=== PATIENT | female | born 2000 | race Caucasian/White ===

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

== ENCOUNTER 2022-08-16 10:23 | Emergency (ER) | payer OTHER, SELFPAY ==
[2022-08-16 10:24] VITALS: BP 137/94; PULSE 76; RESP 18; TEMP 35.9; O2SAT 100; BMI 25.8
--- NOTE | 2022-08-16 11:01 | EKG12_ITS ---
Test Reason : CHEST TIGHTNESS Blood Pressure : / mmHG Vent. Rate : 056 BPM Atrial Rate : 056 BPM P-R Int : 186 ms QRS Dur : 088 ms QT Int : 410 ms P-R-T Axes : 018 027 002 degrees QTc Int : 395 ms Sinus bradycardia with sinus arrhythmia Otherwise normal ECG Confirmed by ROBETR LINCOLN, CATHY ([id number]), brands editor LUCILA WANG ([id number]) on 08/20/2022 9:41:35 AM Referred By: TATYANA Confirmed By:CATHY JONES MD
--- NOTE | 2022-08-16 11:01 | ED.VIS.DYS ---
HPI History of Present Illness Chief Complaint: Shortness of Breath Narrative Narrative: 22-year-old female presents with substernal chest tightness and shortness of breath that she is had since yesterday. She does not take control pills and has not taken them for at least a few months. She does vape and this morning she smoked a cigarette because she did not want to vape. She says that she has past medical history of anxiety and has not been taking her fluoxetine. She denies any exertional component to this. No nausea or vomiting. No fevers or chills. No cough. She also states that with her chest tightness and shortness of breath she feels that her heart may skip a beat or beat really fast. She denies any leg swelling. No DVT or PE risk factors. No sudden in the family. [facility] Medical History (Updated 08/16/22 @ 12:09 by Jhonny Ruano MD) Abnormal ultrasound of breast Anxiety Lump in central portion of left breast Lump of right breast Pharyngitis, acute Home Medications naproxen 500 mg tablet 500 mg PO BID #20 tabs 08/22/16 [Rx Last Taken Unknown] control PO 04/10/19 [History Last Taken Unknown] acyclovir 200 mg capsule 200 mg PO TID PRN 07/14/20 [History Last Taken Unknown] fluoxetine 40 mg capsule 40 mg PO DAILY 07/14/20 [History Last Taken Unknown] cephalexin 500 mg capsule 500 mg PO TID #21 caps 01/25/21 [Rx Last Taken Unknown] Allergy/AdvReac Type Severity Reaction Status Date / Time No Known Allergies Allergy Verified 08/16/22 10:24 Family History Mother Arthritis Precancerous lesion Breast Sister Seizures Grandmother Diabetes Other Cancer Heart disease Hypertension Surgical History History of right breast biopsy (~07/2020) No significant past surgical history Social History Smoking Status: Current every day smoker tobacco type: cigarettes alcohol intake: never substance use type: marijuana caffeine: Yes what type of physical activity do you participate in: none frequency: does not exercise ROS ROS ED ROS Narrative Constitutional: No fever, no chills. HEENT: No sore throat. No neck pain. No loss of vision. No rhinorrhea. Cardiovascular: No chest pain. No palpitations. No pedal edema. Respiratory: No cough, positive shortness of breath. Substernal chest tightness on occasion. Abdominal: No abdominal pain. No nausea. No vomiting. Genitourinary: No dysuria. No hematuria. Musculoskeletal: No myalgias. No arthralgias. Neurologic: No headaches. No dizziness. No lightheadedness. Skin: No rash. No change in color. Psychiatric: No depression. No anxiety. EXAM Physical Exam Narrative Exam Narrative: Afebrile. Vital signs noted. HEENT: Normocephalic. Atraumatic. PERRL, EOMI. Neck soft and supple. No point tenderness or step off. Cardiovascular: Regular rate and rhythm. No murmurs, rubs, or gallops appreciated. Respiratory: No tachypnea. Lungs clear to auscultation bilaterally. Gastrointestinal: Abdomen soft, nontender, with normoactive bowel sounds. No rebound or guarding. Neurological: Awake. Alert. Nonfocal, nonlateralizing. Skin: No rash. Normal color. No pallor. Musculoskeletal: No pedal edema. Full range of motion extremities. Const Vital Signs: 08/16/22 10:24 08/16/22 11:05 08/16/22 11:05 Temperature 96.7 F L Temperature Source Temporal Pulse Rate 76 70 Respiratory Rate 18 16 Respiratory Effort Normal Respiratory Pattern Normal Blood Pressure 137/94 H Blood Pressure Mean 108 Pulse Ox 100 96 Oxygen Delivery Method Room Air Room Air MDM [facility] MDM Narrative Medical decision making narrative: Patient is afebrile here. Pulse ox is 100% on room air without evidence of hypoxia. She is not tachycardic and is PERC negative. I do not feel D-dimer is indicated. Given her subjective shortness of breath and palpitations EKG and chest x-ray in 2 views were obtained. Smoking cessation was discussed. EKG was obtained and interpreted by myself which shows sinus bradycardia with a sinus arrhythmia at [address] changes. No STEMI. Chest x-ray in 2 views interpreted by myself shows no evidence of pneumothorax or infiltrate. No acute cardiopulmonary process. At this point in time, I feel she be discharged safely home with follow-up to her primary care physician. She will start her medications for anxiety again. Return instructions to the emergency department were reviewed. Disposition is discharged home in stable condition. Radiography Diagnostic Testing: Clinical Impression(s) from Imaging Studies Chest X-Ray 08/16/22 11:25 IMPRESSION: Normal x-ray examination of the chest. Electronically Signed: Annette Montiel MD at 11:39 EDT , Discharge Plan Triage Chief Complaint: Shortness of Breath Other Complaint: Chest Other ED Provider: Jhonny Ruano Dx/Rx/DC Orders Clinical Impression: Shortness of breath, Chest tightness Instructions: ED Dyspnea Prescriptions: No Action control PO fluoxetine 40 mg capsule 40 mg PO DAILY acyclovir 200 mg capsule 200 mg PO TID PRN cephalexin 500 mg capsule 500 mg PO TID Qty: 21 0RF naproxen 500 MG tablet 500 mg PO BID Qty: 20 0RF Primary Care Provider: Jak Miller Referrals: Jak Miller MD [Primary Care Provider] - 3-5 Days if not improving Disposition Disposition: Home, Self Care
[2022-08-16 11:05] VITALS: PULSE 70; RESP 16; O2SAT 96
--- NOTE | 2022-08-16 11:25 | RAD_ITS ---
STUDY: X-RAY CHEST REASON FOR EXAM: Female, 22 years old. Shortness of breath TECHNIQUE: Frontal and lateral views of the chest. COMPARISON: None. FINDINGS: The lungs are clear and expanded. There is no demonstrated pleural abnormality. Normal size heart. Normal mediastinum and darrius. Normal visualized pulmonary arteries. Normal visualized aortic arch and descending thoracic aorta. Normal visualized thoracic spine. Normal visualized ribs, clavicles, and shoulders. There is no demonstrated abnormality of the visualized soft tissue structures of the upper abdomen. RAD/Chest PA and Lateral IMPRESSION: Normal x-ray examination of the chest. Electronically Signed: Annette Montiel MD at 11:39 EDT ,
[2022-08-16 12:16] VITALS: RESP 14
== END 2022-08-16 12:17 | disposition home or self-care (01) ==
PROVIDERS: Emergency Provider Emergency Medicine; PCP Family Medicine; Visit Provider Emergency Medicine
DX: R06.02 Shortness of breath (principal); R07.89 Other chest pain; F12.90 Cannabis use, unspecified, uncomplicated; F17.210 Nicotine dependence, cigarettes, uncomplicated
CPT/HCPCS: 71046; 93005; 99282

== ENCOUNTER → 2024-12-01 | Outpatient (CLI) | payer OTHER, SELFPAY ==
--- NOTE | 2024-12-01 13:29 | US_ITS ---
STUDY: ULTRASOUND BREAST - RIGHT REASON FOR EXAM: Female, 24 years old. Right breast lump. TECHNIQUE: Axial and longitudinal images of the RIGHT breast were performed with a high resolution ultrasound transducer. # OF IMAGES: 32 COMPARISON: None. FINDINGS: RIGHT Breast: There is a 3.1 cm x 3.6 x 1.6 cm hypoechoic well-defined solid nodule at the 5:00 position of the breast at 4 cm from the nipple. A similar appearing hypoechoic solid nodule with well-defined borders also seen at the 8 to 9:00 position of the breast at 2 cm from the nipple. This measures 1.3 cm x 1.8 cm x 0.9 cm. These most likely represent fibroadenomas although tissue diagnosis is recommended. IMPRESSION: There are 2 well-defined hypoechoic well-defined nodules in the right breast as described. Tissue diagnosis is recommended. ASSESSMENT CATEGORY: BIRADS Category 4: Suspicious - Biopsy Should Be Considered. A letter regarding these results will be sent to the patient by the facility within 30 days. Electronically Signed: Connor Edouard MD at 10:01 [facility] , STUDY: ULTRASOUND BREAST - LEFT REASON FOR EXAM: Female, 24 years old. Palpable lumps in the left breast. TECHNIQUE: Axial and longitudinal images of the LEFT breast were performed with a high resolution ultrasound transducer. # OF IMAGES: 32 COMPARISON: None. FINDINGS: LEFT Breast: There is a 1.5 cm x 1.3 cm x 0.6 cm well-defined hypoechoic solid nodule at the 5:00 position of the breast at 5 cm from the nipple. A similar appearing hypoechoic solid nodule with a well-defined border measuring 1.2 cm x 0.7 cm x 0.5 cm is seen at the 1:00 position of the breast at 3 cm from the nipple. Tissue diagnosis is recommended. US/Breast Limited Unilateral IMPRESSION: There are 2 hypoechoic well-defined solid nodules in the breast as described. Biopsy recommended. ASSESSMENT CATEGORY: BIRADS Category 4: Suspicious - Biopsy Should Be Considered. A letter regarding these results will be sent to the patient by the facility within 30 days. Electronically Signed: Connor Edouard MD at 10:03 EST ,
== END | disposition home or self-care (01) ==
LOC: OPUS 13:27
PROVIDERS: PCP Family Medicine; Referring Provider Obstetrics & Gynecology; Visit Provider Obstetrics & Gynecology
DX: N63.10 Unspecified lump in the right breast, unspecified quadrant (principal); N63.20 Unspecified lump in the left breast, unspecified quadrant
CPT/HCPCS: 76642

== ENCOUNTER 2024-12-18 06:00 | Day surgery (SDC) | payer OTHER, SELFPAY ==
[2024-12-18] VITALS (9 sets, daily range): BP systolic 100–126; BP diastolic 66–93; PULSE 63–80; RESP 16; TEMP 36.4–36.8; O2SAT 100; BMI 25.2
[2024-12-18 06:21] LABS: Internal QC Validated? YES +Cl - CLEAR BKGD; Pregnancy, Urine Negative Negative
--- NOTE | 2024-12-18 07:12 | PCM.HP.BLA ---
History and Physical Date of Admission: 12/18/24 Date of Service: 12/07/24 MR#: [id number] Acct: [id number] Name: RICHARD DEWEY Rep #: [id number] : 2000 Provider: Dr. Luna Mann MD Age/Sex: 24/F Location: [facility] Status: Signed Intake Vital Signs 12/14/2409:58 12/07/2513:22 Height 5 ft 6 in 5 ft 6 in Weight: 160 lb BMI 25.8 BP 127/77 H Blood Pressure Location Rt brachial Position Sitting Respiration 18 Pulse 99 Pulse Source Monitor Temp 97.6 F L Temp Source Temporal Pulse Oximetry (%) 99 Oxygen Delivery Method room air Intake Visit Reasons: BIRADS 4 - EXCISIONAL BIOPSY Chief Complaint: BIRADS 4- excisional biopsy Accompanied by: Mother Is patient in pain?: No Allergies No Known Allergies Allergy (Verified 12/07/24 14:20) Medications ?Medication ?Instructions ?Recorded ?Confirmed ?Type control PO 04/10/19 01/25/21 History acyclovir 200 mg capsule 200 mg PO TID PRN 07/14/20 01/25/21 History fluoxetine 40 mg capsule 40 mg PO DAILY 07/14/20 01/25/21 History azithromycin 250 mg tablet See Rx Instructions PO .COMPLEX #6 10/02/24 10/02/24 Rx tabs pseudoephedrine 60 mg-DM 15 1 tab PO Q4-6H PRN cold symptoms 10/02/24 10/02/24 Rx mg-guaifenesin 400 mg tablet #20 tabs (Capmist DM) PFSH Medical History Abnormal ultrasound of breast Anxiety Lump in central portion of left breast Lump of right breast Pharyngitis, acute Surgical History History of right breast biopsy (~07/2020) No significant past surgical history Family History Mother Arthritis Precancerous lesion BreastSister SeizuresGrandmother DiabetesOther Cancer Heart disease Hypertension Social History Smoking Status: Current every day smoker tobacco type: cigarettes alcohol intake: never substance use type: marijuana caffeine: Yes what type of physical activity do you participate in: none frequency: does not exercise HPI HPI HPI: 24-year-old female presents due to right breast enlarging mass. Patient previously had breast biopsy done by Dr. Calix 2021 the right breast at 9:00 path was consistent with a fibroadenoma. At that time the 5:00 area was smaller. Repeat ultrasound now currently shows there is about three 3.1 x 3.6 x 1.6 cm at 5:00 4 cm from the nipple given a BI-RADS 4. The area from 8-9 o'clock 2 cm from nipple is still about the same size at 1.3 x 0.9 and this 1 was previously biopsied. Patient denies pain but does state that it has gotten larger more recently. Patient's paternal great grandma in her early 50s as well as paternal great aunts again in her early 50s and maternal great grandma all diagnosed breast cancer, mom had precancerous cells removed in 2013. 1 previous breast biopsy on the right for the fibroadenoma. ROS General General: No weight change, appetite, fatigue, colon cancer, breast cancer or weakness HEENT HEENT: No difficulty swallowing, eye injury, eye surgery, swollen glands or hoarseness Endo Endocrine: No thyroid disease, diabetes mellitus, thyroid cancer, Hair loss, heat intolerance or cold intolerance Skin Skin: Yes rash; No changing moles Breast Breast: Yes right breast lump and abnormal US; No left breast lump, nipple discharge, breast pain, abnormal mammogram or breast enlargement Musc Musculoskeletal: No back problems, arthritis, rheumatoid arthritis, gout or joint pain Cardio Cardiovascular: No murmur, pacemaker, heart disease, atrial fibrillation, high blood pressure, heart attack, heart stent, palpitations, shortness of breat with exertion or chest pain Psych Psychiatric: Yes anxiety; No depression or hearing voices Resp Respiratory: No shortness of breath, No sleep apnea, No cough, No COPD, No asthma, No emphysema and No wheezing Gastro Gastrointestinal: No abdominal pain, No nausea or vomiting, No diarrhea, No constipation, No blood in stool, No acid reflux, No hemorrhoids, No ulcers, No gallbladder problem and No black,tarry stools Jeronimo Hematologic: No blood thinners, No blood disorders, No bleeding, No anemia and No blood clots Neuro Neurologic: No numbness, No tingling and No weakness Exam Const General: cooperative, healthy appearing and no acute distress [facility] Head: normal to inspection Chest Other: Breast inspection: Symmetric bilaterally?when laying down able to see the right breast mass at 5:00 4 cm from the nipple Right breast: Fibroglandular tissue, 3 x 4 cm mass at 5:00 4 cm from the nipple, nontender, smaller 1.5 cm appreciated at 9:00 2 cm from the nipple., no nipple discharge or pain, no change in overlying skin Left breast: Fibroglandular tissue, no masses on exam, no nipple discharge or pain, no change in overlying skin No axillary or supraclavicular adenopathy bilaterally Resp Effort & Inspection: normal respiratory effort Cardio Rate: regular rate GI Inspection: non-distended Palpation: soft Skin General: no rashes or lesions noted Neuro General: patient oriented x3 Extrem General: no clubbing, cyanosis or edema Psych Affect: normal affect Assessment and Plan Assessment and Plan (1) Lump of right breast: Status: Acute Plan Plan for an excisional biopsy of the 5:00 4 cm from nipple breast mass. The other breast mass at 9:00 has already been biopsy-proven to be a fibroadenoma has not increased in size. Discussed procedure including risk not limited to bleeding, infection, need for further surgery. Patient no further questions time. Luna Mann M.D. Pager: [phone] [facility] [address] [place] [address], [facility], [address] [place] [address] Office: [phone] Coding Level of Care Code Off vis,new,level 3 Diagnoses Lump of right breast N63.10 12/09/24 1125 <Electronically signed by Luna Mann MD> Date Luna Mann MD
--- NOTE | 2024-12-18 07:20 | PCM.PRE.AN2 ---
ASA Classification* ASA Classification ASA Classification: 2 Assessment & Plan Anesthesia* Anesthesia Assessment Anesthesia Assessment: Discussed sedation and/or anesthesia options, risks, benefits, and alternatives with patient/parents/legal guardian/POA. Questions invited. The patient/parents/legal guardian/POA seems to understand and agrees to proceed with anesthesia plan. Reviewed the physical assessment, medical history, allergy history and patient home medications list prior to surgery/procedure/anesthetic and documented any changes. Performed airway and anesthesia risk assessments. Anesthesia Type Anesthesia Type: General History Source History Obtained from:: Patient and Chart Anesthesia Focused Assessment* Temperature: 98.3 F Pulse Rate: 80 Blood Pressure: 126/93 Respiratory Rate: 16 Pulse Ox: 100 Oxygen Delivery Method: Room Air Airway Assessment Mouth opens: >3 cm Mallampati Score: I Teeth Condition: Intact Neck Range of motion (ROM): Full ROM Focused Labs Anesthesia Preop lab: CBC WBC 9.7 K/mm3 (4.4-11.0) 07/21/15 16:40 RBC 4.57 M/mm3 (4.0-5.1) 07/21/15 16:40 Hgb 13.9 g/dl (12.0-15.0) 07/21/15 16:40 Hct 40.9 % (37-47) 07/21/15 16:40 Plt Count 267 K/mm3 (200-450) 07/21/15 16:40 CHEMISTRY Potassium 4.1 mmol/L (3.5-5.1) 07/21/15 16:40 Sodium 140 mmol/L (136-145) 07/21/15 16:40 BUN 12 mg/dL (7-18) 07/21/15 16:40 Creatinine 0.77 mg/dL (0.40-0.70) H 07/21/15 16:40 Glucose 92 mg/dL (70-110) 07/21/15 16:40 TSH 1.38 uIU/mL (0.358-3.74) 12/11/19 15:47 COAG Urine Test Negative Negative 12/18/24 06:07 Pre-Assessment Diagnosis/Proposed Procedure Planned Operative Procedure(s): U/S GUIDED RIGHT EXCISIONAL BREAST BIOPSY Anesthesia History 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 When Was Last Pacemaker Check QUESTION #4 FULL TEXT: You/Your Family Experience fever (hyperthermia) with Anesthesia Last Oral Intake Last Oral intake: Last Oral Intake NPO since 00:00 12/18/24 06:35 Meds taken in AM with sips of Yes 12/18/24 06:35 water? Meds patient instructed to buspirone 12/18/24 06:35 take am of surgery fluoxitine PONV PONV - life insurance sales agent: PONV - life insurance sales agent Female Yes 12/11/24 11:31 HX of Motion Sickness Yes 12/11/24 11:31 HX of N/V After Surgery No 12/11/24 11:31 Non-Smoker Yes 12/11/24 11:31 Duration of Surgery greater Yes 12/11/24 11:31 than 60 minutes Number of Risk Factors 4 12/11/24 11:31 PONV Score Severe Risk 12/11/24 11:31 Height & Weight Height & Weight: Anesthesia: Height & Weight Height 5 ft 6 in 12/18/24 06:35 Weight: 71 kg 12/18/24 06:35 Body Mass Index (BMI) 25.2 12/18/24 06:35 Respiratory Assessment Respiratory Assessment - life insurance sales agent: Respiratory Tract Infection Hx - life insurance sales agent Hx Respiratory Tract Infection No 12/11/24 11:31 STOP Sleep Apnea STOP Sleep Apnea - life insurance sales agent: STOP Sleep Apnea - life insurance sales agent Hx Hypertension No 12/11/24 11:31 Hx Sleep Apnea No 12/11/24 11:31 CPAP BIPAP Do you snore loudly (louder No 12/11/24 11:31 than talking or can be heard Do you often feel tired/ Yes 12/11/24 11:31 fatigued/ sleepy during daytime? Has anyone observed you stop No 12/11/24 11:31 breathing during sleep? STOP Results Negative 12/11/24 11:31 QUESTION #5 FULL TEXT : Do you snore loudly (louder than talking or can be heard through closed doors)? Tobacco Use History Tobacco Use History - life insurance sales agent: Tobacco Use History - life insurance sales agent Tobacco Use Smoking Status Current every day smoker 12/11/24 11:31 Hx Tobacco Use Yes 12/11/24 11:31 Years Smoking Packs Smoked per Day Smoking Cessation Date was within the last 15 years Hx Smoking Cessation Date Hx Smoking Cessation Counseling Any additional information?: Yes Smoking Status: Current every day smoker (Patient did smoke today.) Hematologic Medial History Hematologic Hx - life insurance sales agent: Hematologic Medical Hx - earth mover Hx of Blood Transfusion No 12/11/24 11:31 Hx of Transfusion in last 3 No 12/11/24 11:31 Months Date of Last Transfusion (if within last 3 months) Ever experience any problems No 12/11/24 11:31 with transfusion(s)? Specify any problems Hx of Preganancy in last 3 No 12/11/24 11:31 Months Nurse Filling Out Transfusion DSCHRIBER 12/11/24 11:31 & Questions: Date: 12/11/24 12/11/24 11:31 Time: 11:33 12/11/24 11:31 Patient unable to answer at this time (ie. confused, unrespo /Reproduction History /Reproductive History - life insurance sales agent: /Reproductive Hx- life insurance sales agent Hx Now No 12/11/24 11:31 Gestational Age (in weeks): EDC: Hx Hx Para Hx Section SAB No 12/11/24 11:31 PFSH Medical History Wears contact lenses Wears glasses ADD (attention deficit disorder) Depression Marijuana use Alcohol use History of steroid therapy Easy bruising Heartburn Shortness of breath on exertion Smoker Abnormal ultrasound of breast Anxiety Lump in central portion of left breast Lump of right breast Pharyngitis, acute Home Medications ?Medication ?Instructions ?Recorded ?Last Taken ?Type acyclovir 200 mg capsule 200 mg PO TID PRN cold sores 07/14/20 Unknown History fluoxetine 40 mg capsule 40 mg PO DAILY 07/14/20 12/18/24 History atomoxetine 40 mg capsule 40 mg PO DAILY 12/11/24 12/17/24 History buspirone 15 mg tablet 15 mg PO BID 12/11/24 12/18/24 History loratadine 10 mg tablet (Claritin) 10 mg PO DAILY 12/11/24 12/17/24 History Allergy/AdvReac Type Severity Reaction Status Date / Time No Known Allergies Allergy Verified 12/11/24 11:27 Family History Mother Arthritis Precancerous lesion Breast Sister Seizures Grandmother Diabetes Other Cancer Heart disease Hypertension Surgical History History of right breast biopsy (~07/2020) No significant past surgical history Social History Smoking Status: Current every day smoker tobacco type: cigarettes alcohol intake: never substance use type: marijuana caffeine: Yes what type of physical activity do you participate in: none frequency: does not exercise Review of Systems (Anesthesia) ROS Narrative System reviewed and no additional complaints, except as documented.
--- NOTE | 2024-12-18 07:30 | BRBX_PTH ---
PATIENT: RICHARD DEWEY LOC: [facility] U#:[id number] AGE/SX: 24/F ROOM: RE12/18/[address]: Dr. Luna Mann MD : 2000 BED: DIS: 12/18/2024 SPEC #: [id number] RECD: 12/18/24 08:36 STATUS: TERRY ASH #: [id number] JIN: 12/18/24 07:[address]: Luna Mann DEPT: SURGICAL PATHOLOGY RECD BY: Gaby Hidalgo ENTERED: 12/18/24 09:44 SP TYPE: BREAST BX OTHR DR: Dr. 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 Negative for atypia or malignancy. See comment. SADIEJuaquin 12/22/2024 COMMENT The lesion appears to be completely excised. MICROSCOPIC DESCRIPTION Slides are reviewed. GROSS DESCRIPTION Received in fixative is one container labeled with the patient's name and designated Right breast mass. The specimen consists of a piece of fibroadipose tissue with needle localization measuring 5 x 4 x 2.5cm. The specimen is oriented as follows: short stitch- anterior, long stitch- lateral. The specimen is inked as follows: anterior - yellow, posterior - black, superior - blue, inferior - green, medial - red and lateral - orange. The specimen is serially sectioned from anterior to posterior margins. Sections reveal a us solid nodule occupying 90% of the specimen measuring 3.5 x 3 x 1.5cm. The entire specimen is submitted in twelve cassettes. Cassette 1 contains the most anterior portion of the specimen and cassette 12 contains the posterior portion of the specimen. 12/21/2024 TC:1 CPT:10045
[2024-12-18] MEDS: Cefazolin 2 GM in Syringe IV (07:36)
[2024-12-18] MEDS: Bupiv/Epi 0.25% 30 ML Vial (07:48)
--- NOTE | 2024-12-18 08:04 | OP.PCM_ITS ---
Operative Report (Standard) Operative Information Date of Procedure: 12/18/24 Pre-Operative Diagnosis: Right breast fibroadenoma Post-Operative Diagnosis: Same Surgery/Procedure Performed: Ultrasound-guided localization right breast fibroadenoma excision annual giving officer: Yes Direct Support Professional: Ajay Ribera Tasks completed by therapeutic assistant: Opening & closing Type of Anesthesia: General/Supplemental RN Documented Start/Stop Times: Operation Date: 12/18/24 07:30 Case Time Into Pre-Op 12/18/24 06:03 Out of Pre-Op 12/18/24 07:24 Anesthesia Start 12/18/24 07:30 Into Room 12/18/24 07:30 Procedure Start 12/18/24 07:48 Procedure End 12/18/24 08:16 Anesthesia End 12/18/24 08:26 Out of Room 12/18/24 08:26 Into Recovery 12/18/24 08:29 Out of Recovery 12/18/24 09:18 Into Phase II Recovery 12/18/24 09:19 Procedure Start Time: 07:48 Procedure Stop Time: 08:16 Select all DRAINS/GRAFTS/IMPLANTS that apply: None Special Medications: Ancef 2 g IV x 1 Estimated Blood Loss: < 10 cc Specimen collected: Yes Description of specimen(s) removed: Right breast fibroadenoma Description of surgery: Patient was brought to operating placed spine operating table. Timeout was completed verifying correct patient, procedure, site, positioning, special, prior began procedure. General anesthesia was induced. Patient's right breast was prepped draped in a sterile fashion. Ultrasound guided needle localization with Kopan needle was completed with the wire just inferior to the fibroadenoma. A radial incision was planned in such a way as to minimize the amount of dissection to reach the mass. Flaps were raised in the location of the wire confirmed. The wire was delivered into the wound. 2 silk [id number] stay suture was placed around the wire and used for traction. Dissection was then taken down circumferentially with electrocautery, taking care to include the entire localization needle and wide margin of grossly normal tissue. The specimen and entire localizing wire were removed. The specimen was oriented and sent to radiology for confirmation. No clip was noted in the specimen may be in the surrounding tissue?do not have images from when it was placed to see where it would possibly be at not seen on recent ultrasound images of the lesion. However entire target lesion had been resected. The cavity was irrigated. Hemostasis was obtained with electrocautery. The breast incision was closed with interrupted sutures of 3-0 Vicryl and subcuticular sutures of 4- 0 Monocryl. No attempt was made to close the space. A dressing of fluff gauze and supportive bra placed. The patient tolerated procedure well was taken to the postanesthesia care in stable condition. Surgical Findings: See operative report Complications Complications: No
--- NOTE | 2024-12-18 08:07 | EX.PCM.DISCH ---
Discharge Instructions Diet Discharge Diet: No restrictions Activity Discharge Activity: May Not Drive (for 2-3 days or while taking narcotic pain meds.) and May Shower (After 24 hours) May shower in (days): 1 Lifting Restrictions: 20 pounds for 1 week. Dressing / Incision Call your doctor if your incision/area has: Continuous Slow Oozing, Sudden Increased Bleeding, Increased Pain/ Swelling and Increased Redness Call your doctor if you observe: Fever of 101 or Higher Suture Line Care: Avoid Pulling/Pushing and Avoid Pinching/Bending Remove Dressing in: 1 day Additional Dressing/Incision Instructions:: Remove bulky dressing tomorrow. May leave op-site dressing for 3-4 days. Okay to remove Steri-Strips from the breast incision after 10 days. Follow Up Care Please Follow Up With: Luna Mann MD When: Please call [phone] for an appointment to be seen in 2 week. Test Results: Test results from this visit will be discussed in further detail at your follow-up appointment, if applicable. Discharge Plan Admission Attending Provider: Luna Mann Primary Care Provider: Jak Miller Instructions Print Language: Setswana Discharge Orders/Prescriptions Prescriptions: New tramadol 50 mg tablet 50 mg PO Q6H PRN (Reason: pain) 3 Days Qty: 5 0RF Continued fluoxetine 40 mg capsule 40 mg PO DAILY acyclovir 200 mg capsule 200 mg PO TID PRN (Reason: cold sores) buspirone 15 mg tablet 15 mg PO BID loratadine [Claritin] 10 mg tablet 10 mg PO DAILY atomoxetine 40 mg capsule 40 mg PO DAILY Referrals / Follow Up: Jak Miller MD [Primary Care Provider] - Disposition Disposition (needs filled in before D/C Order can be placed): Home, Self Care
--- NOTE | 2024-12-18 08:09 | BI_ITS ---
SURGICAL BREAST SPECIMEN RADIOGRAPH CLINICAL: Document presence of mass in biopsy specimen. FINDINGS: Specimen shows presence of mass. Electronically Signed: Connor Edouard MD at 10:03 EST , BI/Breast Biopsy Specimen IMPRESSION: undefined
--- NOTE | 2024-12-18 08:32 | PCM.POST.ANE ---
Anesthesia: Postop Eval I Current Vital Signs Temperature: 97.9 F Pulse Rate: 68 Blood Pressure: 102/66 Respiratory Rate: 16 Pulse Ox: 100 Oxygen Delivery Method: Room Air Assessment Airway patent: Yes Spontaneous unlabored respirations: Yes Mental status: Asleep nausea: No Vomiting: No Anesthesia Complication: No Fluid Hydration Crystalloid volume administer (ml): 700 Total IV fluid infused: 700 Progress Note Anesthesia document: Postop Eval 1 completed: Yes
--- NOTE | 2024-12-18 11:03 | POSTOPAN2_ITS ---
Anesthesia Postop Eval I Sum Postop Eval Completion status Anesthesia document: Postop Eval 1 completed: Yes Anesthesia Postop Eval I Summary Anesthesia Postop Eval I Summary: Anesthesia Postop Eval I: Assessment Summary Airway patent Yes 12/18/24 08:33 INTELLIGENCE MANAGER.[email or web address] Spontaneous unlabored Yes 12/18/24 08:33 INTELLIGENCE MANAGER.NETO respirations Mental status Asleep 12/18/24 08:33 INTELLIGENCE MANAGER.NETO nausea No 12/18/24 08:33 INTELLIGENCE MANAGER.NETO Vomiting No 12/18/24 08:33 INTELLIGENCE MANAGER.NETO Anesthesia Postop Eval I: Fluid Summary Crystalloid volume administer 700 12/18/24 08:33 INTELLIGENCE MANAGER.JORDANOBY (ml) Colloids volume administered ( ml) Blood Product volume administered (ml) Total IV fluid infused 700 12/18/24 08:33 INTELLIGENCE MANAGER.NETO Anesthesia Postop Eval I: Summary Notes Anesthesia Complication No 12/18/24 08:33 INTELLIGENCE MANAGER.NETO Anesthesia Complication Comment: Post-operative progress note Anesthesia: Postop Eval II Evaluation Mental status: Awake Pain Level: 0 nausea: No Vomiting: No Complications Anesthesia Complication: No
--- NOTE | 2024-12-18 11:03 | PCM.POSTANE2 ---
Anesthesia Postop Eval I Sum Postop Eval Completion status Anesthesia document: Postop Eval 1 completed: Yes Anesthesia Postop Eval I Summary Anesthesia Postop Eval I Summary: Anesthesia Postop Eval I: Assessment Summary Airway patent Yes 12/18/24 08:33 SANITATION TANK [email or web address].[email or web address] Spontaneous unlabored Yes 12/18/24 08:33 SANITATION TANK WASHER.NETO respirations Mental status Asleep 12/18/24 08:33 SANITATION TANK WASHER.NETO nausea No 12/18/24 08:33 SANITATION TANK WASHER.NETO Vomiting No 12/18/24 08:33 SANITATION TANK WASHER.NETO Anesthesia Postop Eval I: Fluid Summary Crystalloid volume administer 700 12/18/24 08:33 SANITATION TANK WASHER.JORDANOBY (ml) Colloids volume administered ( ml) Blood Product volume administered (ml) Total IV fluid infused 700 12/18/24 08:33 SANITATION TANK [email or web address].NETO Anesthesia Postop Eval I: Summary Notes Anesthesia Complication No 12/18/24 08:33 SANITATION TANK [email or web address].NETO Anesthesia Complication Comment: Post-operative progress note Anesthesia: Postop Eval II Evaluation Mental status: Awake Pain Level: 0 nausea: No Vomiting: No Complications Anesthesia Complication: No
== END 2024-12-18 10:14 | disposition home or self-care (01) ==
LOC: SDC 06:00 → AC 06:01
PROVIDERS: Anesthesiology; PCP Family Medicine; Referring Provider Family Medicine; Visit Provider Surgery
PROC: (CPT 19120; principal; 2024-12-18 07:15)
DX: D24.1 Benign neoplasm of right breast (principal); F41.9 Anxiety disorder, unspecified; F98.8 Other specified behavioral and emotional disorders with onset usually occurring in childhood and adolescence; F32.A Depression, unspecified; F17.210 Nicotine dependence, cigarettes, uncomplicated; Z79.899 Other long term (current) drug therapy
CPT/HCPCS: 19120; 00400; 76098; 81025; 88307; A4216; J2405